=== PATIENT | male | born 1980 | race Caucasian/White ===

== ENCOUNTER 2020-10-16 12:27 | Emergency (ER) | payer MEDICAID, OTHER ==
[2020-10-16] MEDS ORDERED: fentaNYL 100 MCG/2 ML SDV IVPUSH ONE (12:39)
[2020-10-16] MEDS ORDERED: Sodium Chloride 0.9% 1,000 ML IV SCH (12:45)
[2020-10-16] MEDS ORDERED: Bacitracin Oint 1 GM U/D Packet TOP ONE (13:03)
[2020-10-16] MEDS ORDERED: Diphtheria,Pertussis(Acell),Tetanus Vaccine 0.5 ML Syringe IM ONE (13:03)
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
[2020-10-16] MEDS ORDERED: Bacitracin Oint 1 GM U/D Packet ONE (13:34)
[2020-10-16] MEDS ORDERED: Ketorolac 30 MG/ML SDV IVPUSH ONE (13:54)
== END 2020-10-16 14:34 | disposition home or self-care (01) ==
LOC: JP.ED 12:27
DX: T20.27XA Burn of second degree of neck, initial encounter (principal); T22.231A Burn of second degree of right upper arm, initial encounter; T22.232A Burn of second degree of left upper arm, initial encounter; T20.20XA Burn of second degree of head, face, and neck, unspecified site, initial encounter; Z23 Encounter for immunization; X08.8XXA Exposure to other specified smoke, fire and flames, initial encounter
CPT/HCPCS: 90471; 90715; 96374; 96375; 99283; J1885; J3010; J7030